=== PATIENT | female | born 1990 | race Hispanic/Latino ===

== ENCOUNTER 2018-10-12 15:28 | Outpatient (CLI) | payer OTHER ==
--- NOTE | 2018-10-12 16:43 | ULT ---
FObstetrical ultrasound INDICATION: Size and dates COMPARISON: None FINDINGS: There is a single live intrauterine gestation with cardiac activity measured at 154 bpm. The fetus is in breech presentation. The placenta is posterior in location without evidence of previa. The DEACON me asures 15.93 cm. The visualized lateral ventricles appear within normal limits. The posterior fossa was not well seen. The heart and stomach appeared within normal limits. The kidneys were not well seen. The spine is po courtney evaluated. The visualized bladder appears within normal limits. Three-vessel cord is identified. The cord insertion is not well seen. The nose and lips appeared within normal limits. The average gestational age by ultrasound based on biometrics is 19 weeks and 1 day +/- 1 week and 0 days with estimated due date of March 07, 2019. This corresponds to the clinical dates. This weight is 293.99 g +/- 40 4.10 g (65th percentile).. The biparietal diameter measured 4.39 cm giving an estimated gestational age of 19 weeks and 2 days. The head circumference measures 16.39 cm given estimated gestational age of 19 weeks and 1 day. The abdominal circumference measured 14.061 cm giving estimated gestational age 19 weeks and 3 days. The femoral length measures 3.10 cm given estimated gestational age of 19 weeks and 4 days. IMPRESSION: Single live intrauterine gestation with size and dates as above. The survey was sli ghtly limited due to image detail. A follow-up examination in one to 2 weeks is recommended to comple te the survey. The posterior fossa, kidneys, spine and cord insertions were not well seen.
== END 2018-10-12 15:29 | disposition home or self-care (01) ==
LOC: NAV ULT 15:28
PROVIDERS: ATTEND Family Medicine
DX: Z34.82 Encounter for supervision of other normal pregnancy, second trimester (principal); Z3A.19 19 weeks gestation of pregnancy
CPT/HCPCS: 76805

== ENCOUNTER 2018-12-06 11:52 | Outpatient (CLI) | payer OTHER ==
--- NOTE | 2018-12-06 15:06 | ULT ---
OB ULTRASOUND: HISTORY: Size and dates, follow-up. FINDINGS: A single, live intrauterine gestation is seen with measurements corresponding to an estimated gestati onal age of 26 weeks/6 days and BELÉN at [birth year]. The estimate weight measures 1053 gm, or 2 lbs and 5 oz. This corresponds to the 50th percentile by Hadlock criteria. measurements are as follows: BPD: 6.83 cm, 27 weeks/3 days HC: 25.04 cm, 27 weeks/1 day AC: 22.98 cm, 27 weeks/2 days FL: 5.07 cm, 27 weeks/1 day heart rate measures 150 bpm. Placental is posterior and low lying, without evidence of placenta previa. DEACON measures 15 cm. Three vessel cord, cord insertion, kidneys, bladder, stomach, four chamber heart, lateral ventr icles, spine, lips/nose, upper/lower extremities visualized. No definite anomalies seen. IMPRESSION: Single, live intrauterine of 26 weeks/6 days estimated gestational age and BELÉN at 9. POS: [facility]
== END 2018-12-06 11:53 | disposition home or self-care (01) ==
LOC: NAV ULT 11:52
PROVIDERS: ATTEND Family Medicine
DX: Z34.83 Encounter for supervision of other normal pregnancy, third trimester (principal); Z3A.26 26 weeks gestation of pregnancy
CPT/HCPCS: 76805